=== PATIENT | male | born 1985 | race Caucasian/White ===

== ENCOUNTER 2017-03-10 12:28 | Emergency (ER) | payer OTHER ==
[~2017-03-10] VITALS: Ht 190.5 cm; Wt 140.6 kg
[~2017-03-10 12:28] MED LIST: AMOXICILLIN500 MG PO; IBUPROFEN800 MG PO; METHOCARBAMOL750 MG PO; NORCO 10-325 T1 EACH PO; NORCO 5-325 TA1 EACH PO; PREDNISONE20 MG PO; PRILOSEC20 MG PO; ROBAXIN-750750 MG PO; TRAMADOL HCL50 MG PO; ZOFRAN4 MG PO
[2017-03-10] MEDS ORDERED: PREDNISONE20 MG PO (13:02)
== END 2017-03-10 13:10 | disposition home or self-care (01) ==
LOC: ED 12:28
DX: M54.40 Lumbago with sciatica, unspecified side (principal)
CPT/HCPCS: 99283

== ENCOUNTER 2017-05-21 13:09 | Emergency (ER) | payer OTHER ==
[~2017-05-21] VITALS: Ht 190.5 cm; Wt 140.6 kg
== END 2017-05-21 16:47 | disposition home or self-care (01) ==
LOC: ED 13:09
DX: Z00.8 Encounter for other general examination (principal); R45.851 Suicidal ideations; Z79.52 Long term (current) use of systemic steroids
CPT/HCPCS: 80053; 80176; 81001; 84443; 85025; 99283; G0480

== ENCOUNTER 2017-10-23 11:37 | Emergency (ER) | payer OTHER ==
[~2017-10-23] VITALS: Ht 190.5 cm; Wt 136.1 kg
[2017-10-23] MEDS ORDERED: NORCO 5-325 TA1 EACH PO (14:45)
[2017-10-23] MEDS ORDERED: ROBAXIN-750750 MG PO (14:45)
== END 2017-10-23 11:56 | disposition home or self-care (01) ==
LOC: ED 11:37
DX: M54.5 Low back pain (principal); X50.9XXA Other and unspecified overexertion or strenuous movements or postures, initial encounter; Y92.69 Other specified industrial and construction area as the place of occurrence of the external cause; Y99.0 Civilian activity done for income or pay

== ENCOUNTER 2017-10-23 14:29 | Emergency (ER) | payer OTHER ==
[~2017-10-23] VITALS: Ht 190.5 cm; Wt 127.0 kg
[2017-10-23] MEDS ORDERED: ROBAXIN-750750 MG PO (14:45)
[2017-10-23] MEDS ORDERED: NORCO 5-325 TA1 EACH PO (14:45)
== END 2017-10-23 15:00 | disposition home or self-care (01) ==
LOC: ED 14:29
DX: S39.012A Strain of muscle, fascia and tendon of lower back, initial encounter (principal); X50.9XXA Other and unspecified overexertion or strenuous movements or postures, initial encounter; Y92.69 Other specified industrial and construction area as the place of occurrence of the external cause; Y99.0 Civilian activity done for income or pay
CPT/HCPCS: 99283

== ENCOUNTER 2017-11-01 13:12 | Emergency (ER) | payer OTHER ==
[~2017-11-01] VITALS: Ht 190.5 cm; Wt 127.0 kg
[2017-11-01] MEDS ORDERED: NORCO 7.5-3251 EACH PO (14:29)
== END 2017-11-01 14:45 | disposition home or self-care (01) ==
LOC: ED 13:12
DX: S67.22XA Crushing injury of left hand, initial encounter (principal); S62.635A Displaced fracture of distal phalanx of left ring finger, initial encounter for closed fracture; W23.0XXA Caught, crushed, jammed, or pinched between moving objects, initial encounter
CPT/HCPCS: 73130; 99283

== ENCOUNTER 2020-03-25 00:15 | Emergency (ER) | payer OTHER ==
[~2020-03-25] VITALS: Ht 190.5 cm; Wt 149.7 kg
[~2020-03-25 00:15] MED LIST changes: +BACLOFEN10 MG PO; +DOXYCYCLINE HY100 MG PO; +NAPROXEN500 MG PO; +NORCO 7.5-3251 EACH PO
--- OUTSIDE RECORDS SUMMARY | 2020-03-25 00:18 | XMS ---
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 Lilian has no Care Guidelines for this patient. Care History Medical/Surgical 11/02/2017 [facility] Care Recommendation: This patient has had 5 or more Emergency Department visits in the last 12 months. Patient requires education on the scope and purpose of the ED as an acute care provider not a Primary Care Provider and should not be utilized for chronic conditions. If patient returns to ED please contact Community Health WorkerAriela at [phone]. These are guidelines and the provider should exercise clinical judgment when providing care. E.D. VISIT COUNT (12 MO.) 1 [facility] TOTAL 1 NOTE: Visits indicate total known visits. ED/UCC VISIT TRACKING (12 MO.) 03/25/2020 00:15 [facility] [place] TYPE: Emergency COMPLAINT: - FEVER INPATIENT VISIT TRACKING (12 MO.) No inpatient visits to display in this time frame [email or web address]
[2020-03-25] MEDS ORDERED: ZOFRAN4 MG PO (01:30)
--- NOTE | 2020-03-26 20:32 | PATH ---
[facility] [address], [place] [address] Signed ORDERING PHYSICIAN: Pricilla Shelby MD PATIENT NAME: TAYLOR HOWARD GENDER: Demetris : 1985 SPECIMEN(S): No Source Given MOLECULAR PATHOLOGY RESULTS: SARS-CoV-2 DETECTED ADDITIONAL NOTES.: The [place] [employer] SARS-CoV-2 Assay is a multiplex real-time PCR (RT-PCR) in vitro diagnostic test intended for the qualitative detection of RNA from SARS-CoV-2 from individuals who meet COVID-19 clinical and/or epidemiological criteria. In general, SARS-CoV-2 RNA can be detected during the acute phase of infection. Positive results indicate the presence of SARS-CoV-2 RNA. Clinical correlation with patient history and other diagnostic information is necessary to determine patient infection status. Positive results do not rule out bacterial infection or co-infection with other viruses. Negative results do not preclude SARS-CoV-2 infection and should not be used as the sole basis for patient management decisions. Negative results must be combined with other clinical observations, patient history, and epidemiological information. The [place] [employer] SARS-CoV-2 Assay is not yet approved or cleared by the [place] FDA. When there are no FDA-approved or cleared tests available, and other criteria are met, FDA can make tests available under an emergency access mechanism called an Emergency Use Authorization (EUA). The EUA for this test is supported by the [employer] Supervisor of Health and Human Service's (HHS's) declaration that circumstances exist to justify the emergency use of in vitro diagnostics for the detection and/or diagnosis of the virus that causes COVID-19. This EUA will remain in effect for the duration of the COVID-19 declaration justifying emergency of IVDs, unless it is terminated or revoked by FDA, after which the test may no longer be used. The [place] Fusion SARS-CoV-2 Assay is for use only under EUA in US laboratories certified under the Clinical Laboratory Improvement Amendments of 1988 (CLIA) to perform high complexity tests. [facility] is certified under CLIA to perform high complexity PATIENT NAME: TAYLOR HOWARD PATHOLOGY DATE OF : 85 REPORT #: [id number] PHYSICIAN: ESTEBAN CHRISTINE PCP: NACHO DANIELSON REPORT IS CONFIDENTIAL AND NOT TO BE RELEASED WITHOUT AUTHORIZATION [address] [address] Signed clinical laboratory testing. PERFORMING LABORATORY.: Molecular testing was performed by [facility] [address] [place], [place] [address], [place] [address] (Pit Crane Operator: Vignesh Nguyen D.O.; CLIA#: [id number]) Diagnostician: System Interface Pathologist Electronically Signed 03/26/2020 Copies: ~ PATIENT NAME: TAYLOR HOWARD PATHOLOGY DATE OF : [birth year] REPORT #: [id number] PHYSICIAN: ESTEBAN CHRISTINE PCP: NACHO DANIELSON REPORT IS CONFIDENTIAL AND NOT TO BE RELEASED WITHOUT AUTHORIZATION
== END 2020-03-25 01:41 | disposition home or self-care (01) ==
LOC: ED 00:15
DX: B34.9 Viral infection, unspecified (principal); Z20.828 Contact with and (suspected) exposure to other viral communicable diseases
CPT/HCPCS: 99283; C9803

== ENCOUNTER 2021-08-13 18:22 | Emergency (ER) | payer OTHER ==
[~2021-08-13] VITALS: Ht 190.5 cm; Wt 131.5 kg
--- OUTSIDE RECORDS SUMMARY | 2021-08-13 18:30 | XMS ---
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 Lilian has no Care Guidelines for this patient. Care History Medical/Surgical 11/02/2017 [facility] Care Recommendation: This patient has had 5 or more Emergency Department visits in the last 12 months. Patient requires education on the scope and purpose of the ED as an acute care provider not a Primary Care Provider and should not be utilized for chronic conditions. If patient returns to ED please contact Community Health WorkerAriela at [phone]. These are guidelines and the provider should exercise clinical judgment when providing care. E.D. VISIT COUNT (12 MO.) [address] TOTAL 2 NOTE: Visits indicate total known visits. ED/UCC VISIT TRACKING (12 MO.) 08/13/2021 18:23 [facility] [place] TYPE: Emergency COMPLAINT: - COUGH 07/13/2021 07:44 [facility] [place] TYPE: Emergency DIAGNOSES: - Nausea with vomiting, unspecified - ABD PAIN LEFT LEG SWELLING - Cellulitis of left lower limb INPATIENT VISIT TRACKING (12 MO.) No inpatient visits to display in this time frame [id number]
== END 2021-08-13 22:27 | disposition home or self-care (01) ==
LOC: ED 18:22
DX: H66.93 Otitis media, unspecified, bilateral (principal); J20.9 Acute bronchitis, unspecified; Z20.822 Contact with and (suspected) exposure to COVID-19
CPT/HCPCS: 71045; 80053; 81001; 83690; 85025; 96374; 96375; 99283-25; C9803; G0480; J2270; J2405; J7030; U0003